=== PATIENT | male | born 1965 | race Caucasian/White ===

== ENCOUNTER 2017-06-29 08:20 | Inpatient (IN) | payer OTHER ==
[~2017-06-29] VITALS: Ht 188 cm; Wt 92.0 kg
[~2017-06-29 08:20] MED LIST: ACET325 PO; ACTOS PO; ALBU90OI6 INH; ALUM-MAG HYDRO360 ML PO; AMIT25 PO; AMIT50 PO; AMOX500 PO; ANTIBIOTIC OINT28 GM TOP; ATOR10 PO; ATOR40TA PO; Acidophilus La100 GM; BISA10S PR; BISM87SU PO; CEFD300 PO; CEPH500 PO; CETI5 PO; CLIN150 PO; CLIN300 PO; CLON.5 PO; CLON1 PO; CLON2 PO; CODACE30 PO; COLL250TO TOP; COUMADIN; CRUTCH4 USE; Cetirizine HCl10 MG PO; Cipro750 MG PO; Cleocin HCl150 MG PO; DOXY100 PO; ENOX100I SQ; FLUO20 PO; GABA300 PO; GABA400 PO; GABA600 PO; GEMF600 PO; GLIM2 PO; GLIM4 PO; HYDACE10B PO; HYDACE5 PO; HYDCHL12.5 PO; HYDCHL25 PO; HYDCOR1TC TOP; HYDMOR2 PO; HYDMOR4 PO; HYDR-86 PO; HYDR1TAB94 PO; HYDRA25 PO; INS70/30PN SC; INSDET100 SC; INSDET100 SQ; INSLI100I SC; INSR10I SC; INSR10I SUBQ; INSU7030P SC; INSUASPI SC; INSUGL100V SC; INSULANI SC; INSULANI SUBQ; INSULANPEN PO; INSULANPEN SC; LANS30EC PO; LAVAZA PO; LEVIMIR SQ; LEVO750 PO; LISI20 PO; LISI5 PO; LOVAZA; LOVAZA PO; LOW DOSE ASPIRI81 MG PO; Levaquin750 MG PO; MECL12.5 PO; MECL25 PO; METF500 PO; METF850 PO; METO10 PO; MINO100 PO; MIRT30 PO; Milk Of Ma400 MG/5 M PO; NEOPOLBACA TOP; Normal Saline Fl2 ML TOP; Novolog Fl100 UNIT/1 SC; OMEP20ER PO; OMEP40CA12 PO; OMEPRAZOLE MAGN20 MG PO; OXYACE5T PO; OXYC10TA19 PO; OXYC5 PO; Omeprazole20 M1 PO; PIOG15 PO; PRAV20 PO; PRAZ1 PO; PREG25 PO; PSEU120ER PO; Percocet 10-321 EACH PO; Prilosec Otc20 MG PO; RANI150 PO; RXCLIN PO; RXHYD5325 PO; RXHYDACE PO; SACC250C PO; SIMV10 PO; SUCR1 PO; TOPI100 PO; TOPI25 PO; TOPI50 PO; UREA TOP; Unasyn 3 gm3 GM IV; VENL37.5ER PO; VERTICALM25 MG PO; VIBRYD PO; VIIBRYD40 MG PO; WARF10 PO; XARELTO20 MG PO; ZOLP10 PO; ZOLP5 PO; ZYRTEC10 M2 PO; Zofran Odt4 MG SL; Zofran4 MG PO; [UNRECOGNIZED DRUG - CODE] TOP; [UNRECOGNIZED DRUG - OTHER] PR; [UNRECOGNIZED DRUG - OTHER] TOP
[2017-06-29 08:42] LABS: PCO2 Arterial 20.7 mmHg (35-45)
[2017-06-29 08:45] LABS: Calcium, Ionized (POC) 1.11 mmol/L (1.10-1.46); Chloride (POC) 93 mmol/L (98-108); Creatinine (POC) 2.6 mg/dL (0.8-1.3); Glucose (ISTAT POC) >700 mg/dL (70-99); Hemoglobin (POC) 16.7 g/dL (13.5-17.5); Potassium (POC) 5.3 mmol/L (3.5-5.5); Sodium (POC) 121 mmol/L (135-148); Total CO2 (POC) 8 mmol/L (21-32); pH Blood Arterial 6.81 (7.35-7.45)
[2017-06-29 08:46] LABS: PO2 Arterial >500 mmHg (80-100)
[2017-06-29 08:53] LABS: BASOPHILS ABSOLUTE AUTO 0.07 K/mm3 (0.00-0.23); BASOPHILS PERCENT AUTO 0 % (0-2); EOSINOPHILS ABSOLUTE AUTO 0.01 K/mm3 (0.00-0.68); EOSINOPHILS PERCENT AUTO 0 % (0-6); Hemoglobin 15.9 g/dL (13.5-17.5); IMMATURE GRAN ABSOLUTE AUTO 0.22 K/mm3 (0.00-0.10); IMMATURE GRAN PERCENT AUTO 1 % (0-1); LYMPHOCYTES ABSOLUTE AUTO 1.52 K/mm3 (0.84-5.20); LYMPHOCYTES PERCENT AUTO 7 % (21-46); MONOCYTES ABSOLUTE AUTO 1.58 K/mm3 (0.16-1.47); MONOCYTES PERCENT AUTO 7 % (4-13); Mean Corpuscular HGB 30.7 pg (26.0-34.0); Mean Corpuscular HGB Conc 28.3 g/dL (31.5-36.5); Mean Corpuscular Volume 108 fL (80-100); Mean Platelet Volume 11.6 fL (9.1-12.4); NEUTROPHILS ABSOLUTE AUTO 18.58 K/mm3 (1.96-9.15); NEUTROPHILS PERCENT AUTO 85 % (41-73); Platelet Count 279 K/mm3 (150-400); RDW Coefficient Variation 12.2 % (11.7-14.2); RDW Standard Deviation 49.4 fL (35.1-46.3); Red Blood Cell Count 5.18 M/mm3 (4.30-5.90); White Blood Cell Count 21.98 K/mm3 (4.00-11.30)
[2017-06-29 08:55] LABS: Hematocrit 56.1 % (37.0-53.0)
[2017-06-29 09:03] LABS: Source, Urine Catheter
[2017-06-29 09:09] LABS: Bilirubin, Urine Neg (Neg); Blood, Urine 2+ (Neg); Glucose Qualitative, Urine 4+ (Neg); Ketones, Urine 4+ (Neg); Leukocyte Esterase, Urine Neg (Neg); Nitrite, Urine Neg (Neg); Protein, Urine 2+ (Neg); Specific Gravity, Urine 1.015 (1.003-1.022); Urobilinogen, Urine NORM (Normal)
[2017-06-29 09:12] LABS: Ethanol (Alcohol), Blood, Med <3 mg/dL; Troponin I <0.015 ng/mL (0.000-0.040)
[2017-06-29 09:32] LABS: Alanine Aminotransfer (ALT/SGP 29 U/L (12-78); Albumin/Globulin Ratio 0.7 (0.8-1.8); Alk Phos 171 U/L (50-136); Anion Gap 39 mmol/L (6-16); Aspartate Aminotrans (AST/SGOT 20 U/L (12-37); Bilirubin, Total 0.6 mg/dL (0.1-1.0); Blood Urea Nitrogen 73 mg/dL (8-24); CO2, Blood 5 mmol/L (21-32); Calcium, Blood 8.9 mg/dL (8.5-10.1); Chloride, Blood 78 mmol/L (98-108); Creatinine, Blood 2.43 mg/dL (0.60-1.20); Globulin, Blood 4.4 g/dL (2.2-4.0); Glomerular Filtration Rate 25 (60-); Glucose, Blood 1518 mg/dL (70-99); Potassium, Blood 5.2 mmol/L (3.5-5.5); Sodium, Blood 122 mmol/L (136-145); Total Protein, Blood 7.4 g/dL (6.4-8.2)
[2017-06-29 09:32] LABS: U Amphetamine Screen Not Detected; U Barbituate Screen Not Detected; U Benzodiazapine Screen Not Detected; U Buprenorphine Screen Not Detected; U Cannabinoids Screen Not Detected; U Cocaine Screen Not Detected; U Methadone Screen Not Detected; U Methamphetamine Screen Not Detected; U Opiates Screen Not Detected; U Oxycodone Screen Not Detected; U Phencyclidine Screen Not Detected; U Propoxyphene Screen Not Detected
[2017-06-29 09:53] LABS: Appearance, Urine Clear (Clear); Color, Urine Yellow (P-Yellow)
[2017-06-29 09:56] LABS: Granular Casts Rare /lpf (0); Hyaline Casts Rare /lpf (0-2)
[2017-06-29 09:57] LABS: Bacteria Rare /hpf; Red Blood Cells, Urine 0-2 /hpf (0-2); Squamous Epithelial Cells Few /hpf (Few); White Blood Cells, Urine Not Seen /hpf (0-5)
[2017-06-29 12:12] LABS: Potassium, Blood 4.9 mmol/L (3.5-5.5)
[2017-06-29 12:14] LABS: Glucose, Blood 1262 mg/dL (70-99)
[2017-06-29 14:16] LABS: PCO2 Arterial 32.6 mmHg (35-45); PO2 Arterial 211 mmHg (80-100); pH Blood Arterial 7.02 (7.35-7.45)
[2017-06-29 14:16] LABS: Glucose, Blood 1079 mg/dL (70-99)
[2017-06-29 14:17] LABS: Potassium, Blood 4.3 mmol/L (3.5-5.5)
[2017-06-29 16:16] LABS: Potassium, Blood 3.9 mmol/L (3.5-5.5)
[2017-06-29 16:36] LABS: Glucose, Blood 974 mg/dL (70-99)
[2017-06-29 18:02] LABS: Anion Gap 28 mmol/L (6-16); CO2, Blood 11 mmol/L (21-32); Chloride, Blood 102 mmol/L (98-108); Glucose, Blood 902 mg/dL (70-99); Potassium, Blood 3.9 mmol/L (3.5-5.5); Sodium, Blood 141 mmol/L (136-145)
[2017-06-29 20:03] LABS: Anion Gap 23 mmol/L (6-16); CO2, Blood 15 mmol/L (21-32); Chloride, Blood 105 mmol/L (98-108); Glucose, Blood 690 mg/dL (70-99); Potassium, Blood 3.1 mmol/L (3.5-5.5); Sodium, Blood 143 mmol/L (136-145)
[2017-06-29 21:47] LABS: Anion Gap 19 mmol/L (6-16); CO2, Blood 18 mmol/L (21-32); Chloride, Blood 107 mmol/L (98-108); Glucose, Blood 561 mg/dL (70-99); Potassium, Blood 3.2 mmol/L (3.5-5.5); Sodium, Blood 144 mmol/L (136-145)
[2017-06-30 00:14] LABS: Anion Gap 17 mmol/L (6-16); CO2, Blood 21 mmol/L (21-32); Chloride, Blood 110 mmol/L (98-108); Glucose, Blood 458 mg/dL (70-99); Potassium, Blood 3.1 mmol/L (3.5-5.5); Sodium, Blood 148 mmol/L (136-145)
[2017-06-30 02:16] LABS: Anion Gap 14 mmol/L (6-16); Blood Urea Nitrogen 62 mg/dL (8-24); Bun/Creatinine Ratio 25.4 (12.0-20.0); CO2, Blood 21 mmol/L (21-32); Chloride, Blood 112 mmol/L (98-108); Creatinine, Blood 2.44 mg/dL (0.60-1.20); Glomerular Filtration Rate 30 (60-); Glucose, Blood 394 mg/dL (70-99); Phosphorus, Blood 0.5 mg/dL (2.5-4.9); Potassium, Blood 3.9 mmol/L (3.5-5.5); Sodium, Blood 147 mmol/L (136-145)
[2017-06-30 04:57] LABS: PCO2 Arterial 37.4 mmHg (35-45); PO2 Arterial 85.2 mmHg (80-100); pH Blood Arterial 7.46 (7.35-7.45)
[2017-06-30 08:49] LABS: BASOPHILS ABSOLUTE AUTO 0.01 K/mm3 (0.00-0.23); BASOPHILS PERCENT AUTO 0 % (0-2); EOSINOPHILS PERCENT AUTO 0 % (0-6); Hematocrit 28.7 % (37.0-53.0); Hemoglobin 10.7 g/dL (13.5-17.5); IMMATURE GRAN ABSOLUTE AUTO 0.04 K/mm3 (0.00-0.10); IMMATURE GRAN PERCENT AUTO 0 % (0-1); LYMPHOCYTES ABSOLUTE AUTO 0.84 K/mm3 (0.84-5.20); LYMPHOCYTES PERCENT AUTO 9 % (21-46); MONOCYTES ABSOLUTE AUTO 1.16 K/mm3 (0.16-1.47); MONOCYTES PERCENT AUTO 12 % (4-13); Mean Corpuscular HGB 30.5 pg (26.0-34.0); Mean Corpuscular HGB Conc 37.3 g/dL (31.5-36.5); Mean Platelet Volume 10.3 fL (9.1-12.4); NEUTROPHILS ABSOLUTE AUTO 7.89 K/mm3 (1.96-9.15); NEUTROPHILS PERCENT AUTO 79 % (41-73); Platelet Count 113 K/mm3 (150-400); RDW Coefficient Variation 11.9 % (11.7-14.2); RDW Standard Deviation 35.5 fL (35.1-46.3); Red Blood Cell Count 3.51 M/mm3 (4.30-5.90); White Blood Cell Count 9.94 K/mm3 (4.00-11.30)
[2017-06-30 08:50] LABS: Mean Corpuscular Volume 82 fL (80-100)
[2017-06-30 09:26] LABS: Magnesium, Blood 2.2 mg/dL (1.6-2.4)
[2017-06-30 09:27] LABS: Anion Gap 9 mmol/L (6-16); Blood Urea Nitrogen 61 mg/dL (8-24); Bun/Creatinine Ratio 24.1 (12.0-20.0); CO2, Blood 28 mmol/L (21-32); Calcium, Blood 7.2 mg/dL (8.5-10.1); Chloride, Blood 114 mmol/L (98-108); Creatinine, Blood 2.53 mg/dL (0.60-1.20); Glomerular Filtration Rate 28 (60-); Glucose, Blood 198 mg/dL (70-99); Sodium, Blood 151 mmol/L (136-145)
[2017-06-30 19:13] LABS: Albumin, Blood 1.8 g/dL (3.4-5.0); Anion Gap 9 mmol/L (6-16); Blood Urea Nitrogen 58 mg/dL (8-24); CO2, Blood 28 mmol/L (21-32); Calcium, Blood 7.1 mg/dL (8.5-10.1); Chloride, Blood 115 mmol/L (98-108); Creatinine, Blood 2.64 mg/dL (0.60-1.20); Glomerular Filtration Rate 27 (60-); Glucose, Blood 306 mg/dL (70-99); Phosphorus, Blood 3.5 mg/dL (2.5-4.9); Potassium, Blood 3.4 mmol/L (3.5-5.5); Sodium, Blood 152 mmol/L (136-145)
[2017-06-30 19:40] LABS: Methyl Alcohol None Detected (NDET)
[2017-07-01 04:25] LABS: Hematocrit 28.5 % (37.0-53.0); Hemoglobin 10.3 g/dL (13.5-17.5); Mean Corpuscular HGB 30.8 pg (26.0-34.0); Mean Corpuscular HGB Conc 36.1 g/dL (31.5-36.5); Platelet Count 71 K/mm3 (150-400); RDW Coefficient Variation 12.6 % (11.7-14.2); Red Blood Cell Count 3.34 M/mm3 (4.30-5.90); White Blood Cell Count 8.72 K/mm3 (4.00-11.30)
[2017-07-01 04:27] LABS: Mean Corpuscular Volume 85 fL (80-100)
[2017-07-01 04:46] LABS: Albumin, Blood 1.8 g/dL (3.4-5.0); Anion Gap 8 mmol/L (6-16); Blood Urea Nitrogen 56 mg/dL (8-24); Bun/Creatinine Ratio 22.2 (12.0-20.0); CO2, Blood 26 mmol/L (21-32); Calcium, Blood 7.1 mg/dL (8.5-10.1); Chloride, Blood 116 mmol/L (98-108); Creatinine, Blood 2.52 mg/dL (0.60-1.20); Glomerular Filtration Rate 28 (60-); Glucose, Blood 288 mg/dL (70-99); Magnesium, Blood 2.2 mg/dL (1.6-2.4); Phosphorus, Blood 2.4 mg/dL (2.5-4.9); Potassium, Blood 3.3 mmol/L (3.5-5.5); Sodium, Blood 150 mmol/L (136-145)
[2017-07-01 04:56] LABS: BAND PERCENT MAN 11 % (0-8); BASOPHILS PERCENT MAN 0 % (0-2); EOSINOPHILS PERCENT MAN 0 % (0-6); LYMPHOCYTES PERCENT MAN 15 % (21-46); METAMYELOCYTE ABSOLUTE MAN 0.17 K/mm3 (0.00-0.00); METAMYELOCYTE PERCENT MAN 2 % (0-0); MONOCYTES ABSOLUTE MAN 0.34 K/mm3 (0.16-1.47); MONOCYTES PERCENT MAN 4 % (4-13); NEUTROPHILS ABSOLUTE MAN 6.88 K/mm3 (1.96-9.15); SEG NEUTROPHILS PERCENT MAN 68 % (41-73); TOTAL CELLS COUNTED 100
[2017-07-01 09:50] LABS: Test Name ACET
[2017-07-01] MEDS ORDERED: ACET325 PO (10:09)
[2017-07-01] MEDS ORDERED: LEVEMIR FL100 UNIT/1 SC (10:11)
[2017-07-01] MEDS ORDERED: Novolog Fl100 UNIT/1 INJ (10:12)
[2017-07-01] MEDS ORDERED: LISI5 PO (10:13)
[2017-07-01 14:32] LABS: Albumin, Blood 1.7 g/dL (3.4-5.0); Anion Gap 10 mmol/L (6-16); Blood Urea Nitrogen 55 mg/dL (8-24); Bun/Creatinine Ratio 22.2 (12.0-20.0); CO2, Blood 25 mmol/L (21-32); Calcium, Blood 7.4 mg/dL (8.5-10.1); Chloride, Blood 116 mmol/L (98-108); Creatinine, Blood 2.48 mg/dL (0.60-1.20); Glomerular Filtration Rate 29 (60-); Glucose, Blood 359 mg/dL (70-99); Magnesium, Blood 2.3 mg/dL (1.6-2.4); Phosphorus, Blood 3.5 mg/dL (2.5-4.9); Sodium, Blood 151 mmol/L (136-145)
[2017-07-02 04:35] LABS: Hematocrit 28.8 % (37.0-53.0); Hemoglobin 10.1 g/dL (13.5-17.5); Mean Corpuscular HGB 30.3 pg (26.0-34.0); Mean Corpuscular HGB Conc 35.1 g/dL (31.5-36.5); Mean Corpuscular Volume 87 fL (80-100); Mean Platelet Volume 11.1 fL (9.1-12.4); Platelet Count 76 K/mm3 (150-400); RDW Coefficient Variation 13.2 % (11.7-14.2); RDW Standard Deviation 41.6 fL (35.1-46.3); Red Blood Cell Count 3.33 M/mm3 (4.30-5.90); White Blood Cell Count 10.84 K/mm3 (4.00-11.30)
[2017-07-02 04:46] LABS: Albumin, Blood 1.7 g/dL (3.4-5.0); Anion Gap 7 mmol/L (6-16); Blood Urea Nitrogen 48 mg/dL (8-24); Bun/Creatinine Ratio 21.2 (12.0-20.0); CO2, Blood 28 mmol/L (21-32); Calcium, Blood 7.5 mg/dL (8.5-10.1); Chloride, Blood 116 mmol/L (98-108); Creatinine, Blood 2.26 mg/dL (0.60-1.20); Glomerular Filtration Rate 32 (60-); Glucose, Blood 83 mg/dL (70-99); Magnesium, Blood 2.2 mg/dL (1.6-2.4); Phosphorus, Blood 2.5 mg/dL (2.5-4.9); Potassium, Blood 3.5 mmol/L (3.5-5.5); Sodium, Blood 151 mmol/L (136-145)
[2017-07-02 05:52] LABS: BAND PERCENT MAN 14 % (0-8); BASOPHILS PERCENT MAN 0 % (0-2); EOSINOPHILS PERCENT MAN 0 % (0-6); LYMPHOCYTES ABSOLUTE MAN 1.95 K/mm3 (0.84-5.20); LYMPHOCYTES PERCENT MAN 18 % (21-46); METAMYELOCYTE PERCENT MAN 1 % (0-0); MONOCYTES ABSOLUTE MAN 0.32 K/mm3 (0.16-1.47); MONOCYTES PERCENT MAN 3 % (4-13); NEUTROPHILS ABSOLUTE MAN 8.45 K/mm3 (1.96-9.15); SEG NEUTROPHILS PERCENT MAN 64 % (41-73); TOTAL CELLS COUNTED 100
[2017-07-03 04:49] LABS: BASOPHILS ABSOLUTE AUTO 0.01 K/mm3 (0.00-0.23); BASOPHILS PERCENT AUTO 0 % (0-2); EOSINOPHILS ABSOLUTE AUTO 0.06 K/mm3 (0.00-0.68); EOSINOPHILS PERCENT AUTO 1 % (0-6); Hematocrit 27.9 % (37.0-53.0); Hemoglobin 9.4 g/dL (13.5-17.5); IMMATURE GRAN ABSOLUTE AUTO 0.04 K/mm3 (0.00-0.10); IMMATURE GRAN PERCENT AUTO 1 % (0-1); LYMPHOCYTES PERCENT AUTO 12 % (21-46); MONOCYTES ABSOLUTE AUTO 0.54 K/mm3 (0.16-1.47); MONOCYTES PERCENT AUTO 6 % (4-13); Mean Corpuscular HGB 30.3 pg (26.0-34.0); Mean Corpuscular HGB Conc 33.7 g/dL (31.5-36.5); Mean Platelet Volume 10.9 fL (9.1-12.4); NEUTROPHILS ABSOLUTE AUTO 6.91 K/mm3 (1.96-9.15); NEUTROPHILS PERCENT AUTO 81 % (41-73); Platelet Count 74 K/mm3 (150-400); RDW Coefficient Variation 13.2 % (11.7-14.2); RDW Standard Deviation 43.4 fL (35.1-46.3); White Blood Cell Count 8.56 K/mm3 (4.00-11.30)
[2017-07-03 04:57] LABS: Mean Corpuscular Volume 90 fL (80-100)
[2017-07-03 05:05] LABS: Albumin, Blood 1.6 g/dL (3.4-5.0); Anion Gap 6 mmol/L (6-16); Blood Urea Nitrogen 45 mg/dL (8-24); Bun/Creatinine Ratio 21.7 (12.0-20.0); CO2, Blood 28 mmol/L (21-32); Calcium, Blood 8.2 mg/dL (8.5-10.1); Chloride, Blood 114 mmol/L (98-108); Creatinine, Blood 2.07 mg/dL (0.60-1.20); Glomerular Filtration Rate 36 (60-); Glucose, Blood 155 mg/dL (70-99); Magnesium, Blood 2.4 mg/dL (1.6-2.4); Phosphorus, Blood 2.5 mg/dL (2.5-4.9); Potassium, Blood 3.6 mmol/L (3.5-5.5); Sodium, Blood 148 mmol/L (136-145)
[2017-07-04 05:04] LABS: Hematocrit 30.7 % (37.0-53.0); Hemoglobin 10.2 g/dL (13.5-17.5); Mean Corpuscular HGB 30.1 pg (26.0-34.0); Mean Corpuscular HGB Conc 33.2 g/dL (31.5-36.5); Mean Corpuscular Volume 91 fL (80-100); Mean Platelet Volume 10.8 fL (9.1-12.4); Platelet Count 92 K/mm3 (150-400); RDW Coefficient Variation 12.6 % (11.7-14.2); RDW Standard Deviation 41.9 fL (35.1-46.3); Red Blood Cell Count 3.39 M/mm3 (4.30-5.90); White Blood Cell Count 6.21 K/mm3 (4.00-11.30)
[2017-07-04 05:19] LABS: Bun/Creatinine Ratio 22.9 (12.0-20.0); Calcium, Blood 8.8 mg/dL (8.5-10.1); Creatinine, Blood 1.79 mg/dL (0.60-1.20); Potassium, Blood 3.9 mmol/L (3.5-5.5)
[2017-07-04 05:37] LABS: Percent Saturation 46.7 % (20.0-50.0)
[2017-07-04] MEDS ORDERED: Augmentin 875-1 EACH PO (10:21)
[2017-07-04] MEDS ORDERED: ROXICODONE5 MG PO (10:21)
[2017-07-04] MEDS ORDERED: PANT40 PO (10:22)
[2017-10-13] MEDS ORDERED: ACET325 PO (13:04)
[2017-10-13] MEDS ORDERED: GABA100 PO (13:05)
[2017-10-13] MEDS ORDERED: HYDCHL12.5 PO (13:06)
[2017-10-13] MEDS ORDERED: INSU100I6 SC (13:12)
[2017-10-13] MEDS ORDERED: LEVEMIR FL100 UNIT/1 SC (13:13)
[2017-10-13] MEDS ORDERED: LISI5 PO (13:13)
[2017-10-13] MEDS ORDERED: OXYC5 PO (13:16)
[2017-10-13] MEDS ORDERED: METF500C PO (13:16)
[2017-10-13] MEDS ORDERED: PRAV20 PO (13:17)
[2017-10-13] MEDS ORDERED: PANT40 PO (13:17)
[2017-10-13] MEDS ORDERED: TOPI25 PO (13:18)
[2017-10-13] MEDS ORDERED: ALBU90OI INH (13:18)
[2017-10-13] MEDS ORDERED: Culturelle1 CAP PO (13:20)
[2017-10-13] MEDS ORDERED: AZIT500 PO (13:22)
[2017-10-13] MEDS ORDERED: LEVFLO500 PO (13:23)
[2018-04-07] MEDS ORDERED: Novolog Fl100 UNIT/1 SC (14:12)
[2018-04-07] MEDS ORDERED: Lantus100 UNIT/1 SC (14:12)
[2018-04-18] MEDS ORDERED: ONDA4 PO (16:45)
[2018-04-18] MEDS ORDERED: PROM25 PO (16:46)
[2018-04-18] MEDS ORDERED: PANT40 PO (16:49)
[2018-04-18] MEDS ORDERED: Micro-K10 MEQ PO (16:54)
[2018-04-18] MEDS ORDERED: FURO40 PO (16:55)
[2018-04-18] MEDS ORDERED: INSULANPEN SC ×2 (16:58→16:59)
[2018-04-18] MEDS ORDERED: Novolog Fl100 UNIT/1 SC ×2 (17:01→17:03)
[2018-04-18] MEDS ORDERED: BETA.05TCA TOP (17:06)
[2018-04-18] MEDS ORDERED: TRAM50 PO (17:07)
== END 2017-07-04 10:52 | disposition home or self-care (01) | DRG 871 ==
LOC: ER 08:20 → EDBD 09:17 → PCU 09:17 → ICUW 09:17 → ICUE 09:17 → PCU 09:17 → ICUE 10:03 → PCU 07-01 17:28
PROVIDERS: Emergency Medicine; Family Medicine; Internal Medicine; Internal Medicine Critical Care Medicine; Internal Medicine Pulmonary Disease
PROC: 0BH17EZ Insertion of Endotracheal Airway into Trachea, Via Natural or Artificial Opening (ICD-10-PCS; principal; 2017-06-29)
PROC: 5A1945Z Respiratory Ventilation, 24-96 Consecutive Hours (ICD-10-PCS; 2017-06-29)
DX: A41.9 Sepsis, unspecified organism (principal); J96.00 Acute respiratory failure, unspecified whether with hypoxia or hypercapnia; R57.9 Shock, unspecified; E11.01 Type 2 diabetes mellitus with hyperosmolarity with coma; G93.40 Encephalopathy, unspecified; E11.10 Type 2 diabetes mellitus with ketoacidosis without coma; N17.9 Acute kidney failure, unspecified; E87.0 Hyperosmolality and hypernatremia; R65.20 Severe sepsis without septic shock; R40.2432 Glasgow coma scale score 3-8, at arrival to emergency department; E11.22 Type 2 diabetes mellitus with diabetic chronic kidney disease; N18.9 Chronic kidney disease, unspecified; K21.9 Gastro-esophageal reflux disease without esophagitis; R68.0 Hypothermia, not associated with low environmental temperature; E83.39 Other disorders of phosphorus metabolism; E87.6 Hypokalemia; Z79.4 Long term (current) use of insulin
CPT/HCPCS: 31500; 31720; 36415; 36600; 51702; 70450; 71045; 71046; 80047; 80048; 80051; 80053; 80069; 81001; 82010; 82693; 82728; 82803; 82947; 83540; 83550; 83605; 83735; 83930; 84100; 84484; 84600; 85014; 85025; 85027; 87040; 87070; 87077; 87186; 87205; 87493; 93005; 93010; 94002; 94003; 94640; 94760; 96374; 96375; 99291; 99292; C1751; C9113; G0480; J0330; J1650; J1815; J1956; J2060; J2543; J3010; J3480; J7030; J7040; J7042; J7060; J7070

== ENCOUNTER 2017-10-11 10:31 | Inpatient (IN) | END 2017-10-13 14:15 | disposition home or self-care (01) | DRG 871 ==

== ENCOUNTER 2017-10-19 11:26 | Emergency (ER) | payer OTHER ==
[~2017-10-19] VITALS: Ht 190.5 cm; Wt 90.3 kg
[~2017-10-19 11:26] MED LIST changes: +ALBU90OI INH; +AZIT500 PO; +Augmentin 875-1 EACH PO; +Culturelle1 CAP PO; +GABA100 PO; +INSU100I6 SC; +LEVEMIR FL100 UNIT/1 SC; +LEVFLO500 PO; +METF500C PO; +Novolog Fl100 UNIT/1 INJ; +PANT40 PO; +ROXICODONE5 MG PO
[2017-10-19 12:16] LABS: BASOPHILS ABSOLUTE AUTO 0.03 K/mm3 (0.00-0.23); BASOPHILS PERCENT AUTO 0 % (0-2); EOSINOPHILS ABSOLUTE AUTO 0.06 K/mm3 (0.00-0.68); EOSINOPHILS PERCENT AUTO 1 % (0-6); IMMATURE GRAN ABSOLUTE AUTO 0.02 K/mm3 (0.00-0.10); IMMATURE GRAN PERCENT AUTO 0 % (0-1); LYMPHOCYTES ABSOLUTE AUTO 1.22 K/mm3 (0.84-5.20); LYMPHOCYTES PERCENT AUTO 15 % (21-46); MONOCYTES ABSOLUTE AUTO 0.99 K/mm3 (0.16-1.47); MONOCYTES PERCENT AUTO 12 % (4-13); Mean Corpuscular HGB 31.1 pg (26.0-34.0); Mean Corpuscular HGB Conc 35.3 g/dL (31.5-36.5); Mean Platelet Volume 10.1 fL (9.1-12.4); NEUTROPHILS ABSOLUTE AUTO 5.76 K/mm3 (1.96-9.15); NEUTROPHILS PERCENT AUTO 71 % (41-73); Platelet Count 218 K/mm3 (150-400); RDW Standard Deviation 38.4 fL (35.1-46.3); Red Blood Cell Count 3.86 M/mm3 (4.30-5.90); White Blood Cell Count 8.08 K/mm3 (4.00-11.30)
[2017-10-19 12:38] LABS: Alanine Aminotransfer (ALT/SGP 21 U/L (12-78); Albumin, Blood 2.6 g/dL (3.4-5.0); Albumin/Globulin Ratio 0.6 (0.8-1.8); Alk Phos 133 U/L (50-136); Anion Gap 9 mmol/L (6-16); Aspartate Aminotrans (AST/SGOT 11 U/L (12-37); Bilirubin, Total 0.3 mg/dL (0.1-1.0); Blood Urea Nitrogen 19 mg/dL (8-24); Bun/Creatinine Ratio 23.3 (12.0-20.0); CO2, Blood 27 mmol/L (21-32); Calcium, Blood 8.8 mg/dL (8.5-10.1); Chloride, Blood 94 mmol/L (98-108); Creatinine, Blood 0.82 mg/dL (0.60-1.20); Glomerular Filtration Rate >60 (60-); Glucose, Blood 569 mg/dL (70-99); Potassium, Blood 4.3 mmol/L (3.5-5.5); Sodium, Blood 130 mmol/L (136-145); Total Protein, Blood 6.6 g/dL (6.4-8.2); Troponin I <0.015 ng/mL (0.000-0.040)
[2017-10-19 12:42] LABS: Mean Corpuscular Volume 88 fL (80-100)
[2017-10-19 12:44] LABS: Beta-hydroxybutyrate 3.4 mg/dL (0.2-2.8)
== END 2017-10-19 15:40 | disposition home or self-care (01) ==
LOC: ER 11:26
PROVIDERS: Emergency Medicine
DX: E11.65 Type 2 diabetes mellitus with hyperglycemia (principal); F17.200 Nicotine dependence, unspecified, uncomplicated; Z88.2 Allergy status to sulfonamides; Z88.5 Allergy status to narcotic agent; Z91.048 Other nonmedicinal substance allergy status; Z79.4 Long term (current) use of insulin; Z79.899 Other long term (current) drug therapy; Z79.84 Long term (current) use of oral hypoglycemic drugs; Z79.891 Long term (current) use of opiate analgesic
CPT/HCPCS: 36415; 71046; 80053; 82010; 82800; 82947; 84484; 85025; 93005; 93010; 96360; 99283; J1815; J7030

== ENCOUNTER 2017-12-21 23:55 | Inpatient (IN) | payer OTHER ==
[~2017-12-21] VITALS: Ht 190.5 cm; Wt 96.6 kg
[2017-12-22] MEDS ORDERED: AMIT50 PO (02:07)
[2017-12-22] MEDS ORDERED: BETA.05TCA TOP (02:08)
[2017-12-22] MEDS ORDERED: ZYRTEC10 M1 PO (02:09)
[2017-12-22] MEDS ORDERED: FURO40 PO (02:12)
[2017-12-22] MEDS ORDERED: GABA600 PO (02:13)
[2017-12-22] MEDS ORDERED: INSULANPEN SC (02:15)
[2017-12-22] MEDS ORDERED: Mirtazapine45 M1 PO (02:16)
[2017-12-22] MEDS ORDERED: Omeprazole20 M1 PO (02:18)
[2017-12-22] MEDS ORDERED: ONDA4ODT MM (02:20)
[2017-12-22 03:09] LABS: BASOPHILS ABSOLUTE AUTO 0.08 K/mm3 (0.00-0.23); BASOPHILS PERCENT AUTO 1 % (0-2); EOSINOPHILS ABSOLUTE AUTO 0.21 K/mm3 (0.00-0.68); EOSINOPHILS PERCENT AUTO 3 % (0-6); Hematocrit 35.8 % (37.0-53.0); IMMATURE GRAN ABSOLUTE AUTO 0.04 K/mm3 (0.00-0.10); IMMATURE GRAN PERCENT AUTO 1 % (0-1); LYMPHOCYTES PERCENT AUTO 27 % (21-46); MONOCYTES ABSOLUTE AUTO 0.71 K/mm3 (0.16-1.47); MONOCYTES PERCENT AUTO 9 % (4-13); Mean Corpuscular HGB 30.2 pg (26.0-34.0); Mean Corpuscular HGB Conc 33.5 g/dL (31.5-36.5); Mean Corpuscular Volume 90 fL (80-100); NEUTROPHILS ABSOLUTE AUTO 4.49 K/mm3 (1.96-9.15); NEUTROPHILS PERCENT AUTO 60 % (41-73); RDW Coefficient Variation 12.4 % (11.7-14.2); Red Blood Cell Count 3.98 M/mm3 (4.30-5.90); White Blood Cell Count 7.53 K/mm3 (4.00-11.30)
[2017-12-22 03:11] LABS: Mean Platelet Volume 10.7 fL (9.1-12.4); Platelet Count 154 K/mm3 (150-400)
[2017-12-22 03:19] LABS: Anion Gap 9 mmol/L (6-16); Blood Urea Nitrogen 32 mg/dL (8-24); Bun/Creatinine Ratio 36.6 (12.0-20.0); CO2, Blood 24 mmol/L (21-32); Calcium, Blood 8.4 mg/dL (8.5-10.1); Chloride, Blood 100 mmol/L (98-108); Creatinine, Blood 0.88 mg/dL (0.60-1.20); Glomerular Filtration Rate >60 (60-); Glucose, Blood 381 mg/dL (70-99); Potassium, Blood 4.1 mmol/L (3.5-5.5); Sodium, Blood 133 mmol/L (136-145)
[2017-12-22] MEDS ORDERED: XARELTO20 MG PO (03:29)
[2017-12-22] MEDS ORDERED: POTCHL10ER PO (03:29)
[2017-12-22] MEDS ORDERED: VIIBRYD40 MG PO (03:30)
[2017-12-23 04:35] LABS: BASOPHILS ABSOLUTE AUTO 0.05 K/mm3 (0.00-0.23); BASOPHILS PERCENT AUTO 1 % (0-2); EOSINOPHILS ABSOLUTE AUTO 0.21 K/mm3 (0.00-0.68); EOSINOPHILS PERCENT AUTO 4 % (0-6); Hematocrit 35.3 % (37.0-53.0); Hemoglobin 11.6 g/dL (13.5-17.5); IMMATURE GRAN ABSOLUTE AUTO 0.02 K/mm3 (0.00-0.10); IMMATURE GRAN PERCENT AUTO 0 % (0-1); LYMPHOCYTES ABSOLUTE AUTO 1.42 K/mm3 (0.84-5.20); LYMPHOCYTES PERCENT AUTO 27 % (21-46); MONOCYTES ABSOLUTE AUTO 0.44 K/mm3 (0.16-1.47); MONOCYTES PERCENT AUTO 8 % (4-13); Mean Corpuscular HGB 29.7 pg (26.0-34.0); Mean Corpuscular HGB Conc 32.9 g/dL (31.5-36.5); Mean Corpuscular Volume 91 fL (80-100); Mean Platelet Volume 10.2 fL (9.1-12.4); NEUTROPHILS ABSOLUTE AUTO 3.13 K/mm3 (1.96-9.15); NEUTROPHILS PERCENT AUTO 60 % (41-73); Platelet Count 206 K/mm3 (150-400); RDW Coefficient Variation 12.7 % (11.7-14.2); White Blood Cell Count 5.27 K/mm3 (4.00-11.30)
[2017-12-23 04:59] LABS: Alanine Aminotransfer (ALT/SGP 18 U/L (12-78); Albumin, Blood 2.3 g/dL (3.4-5.0); Albumin/Globulin Ratio 0.5 (0.8-1.8); Alk Phos 106 U/L (50-136); Anion Gap 7 mmol/L (6-16); Aspartate Aminotrans (AST/SGOT 22 U/L (12-37); Bilirubin, Total 0.4 mg/dL (0.1-1.0); Blood Urea Nitrogen 27 mg/dL (8-24); Bun/Creatinine Ratio 31.8 (12.0-20.0); CO2, Blood 25 mmol/L (21-32); Calcium, Blood 7.9 mg/dL (8.5-10.1); Chloride, Blood 107 mmol/L (98-108); Creatinine, Blood 0.85 mg/dL (0.60-1.20); Globulin, Blood 4.2 g/dL (2.2-4.0); Glomerular Filtration Rate >60 (60-); Glucose, Blood 237 mg/dL (70-99); Potassium, Blood 4.5 mmol/L (3.5-5.5); Sodium, Blood 139 mmol/L (136-145); Total Protein, Blood 6.5 g/dL (6.4-8.2)
[2017-12-23 16:23] LABS: Vancomycin, Trough 14.7 ug/mL (5.0-10.0)
[2017-12-24 05:37] LABS: BASOPHILS ABSOLUTE AUTO 0.04 K/mm3 (0.00-0.23); BASOPHILS PERCENT AUTO 1 % (0-2); EOSINOPHILS ABSOLUTE AUTO 0.21 K/mm3 (0.00-0.68); EOSINOPHILS PERCENT AUTO 3 % (0-6); Hematocrit 35.8 % (37.0-53.0); Hemoglobin 11.5 g/dL (13.5-17.5); IMMATURE GRAN ABSOLUTE AUTO 0.03 K/mm3 (0.00-0.10); IMMATURE GRAN PERCENT AUTO 1 % (0-1); LYMPHOCYTES ABSOLUTE AUTO 1.53 K/mm3 (0.84-5.20); LYMPHOCYTES PERCENT AUTO 25 % (21-46); MONOCYTES ABSOLUTE AUTO 0.55 K/mm3 (0.16-1.47); MONOCYTES PERCENT AUTO 9 % (4-13); Mean Corpuscular HGB 29.2 pg (26.0-34.0); Mean Corpuscular HGB Conc 32.1 g/dL (31.5-36.5); Mean Corpuscular Volume 91 fL (80-100); Mean Platelet Volume 9.9 fL (9.1-12.4); NEUTROPHILS ABSOLUTE AUTO 3.74 K/mm3 (1.96-9.15); NEUTROPHILS PERCENT AUTO 61 % (41-73); Platelet Count 228 K/mm3 (150-400); RDW Coefficient Variation 12.6 % (11.7-14.2); RDW Standard Deviation 41.5 fL (35.1-46.3); Red Blood Cell Count 3.94 M/mm3 (4.30-5.90)
[2017-12-24 06:00] LABS: Albumin, Blood 2.3 g/dL (3.4-5.0); Anion Gap 9 mmol/L (6-16); Blood Urea Nitrogen 26 mg/dL (8-24); Bun/Creatinine Ratio 24.5 (12.0-20.0); CO2, Blood 25 mmol/L (21-32); Calcium, Blood 8.5 mg/dL (8.5-10.1); Chloride, Blood 109 mmol/L (98-108); Creatinine, Blood 1.06 mg/dL (0.60-1.20); Glomerular Filtration Rate >60 (60-); Glucose, Blood 87 mg/dL (70-99); Potassium, Blood 3.8 mmol/L (3.5-5.5); Sodium, Blood 143 mmol/L (136-145)
[2017-12-25] MEDS ORDERED: SACC250C PO (14:34)
[2017-12-25] MEDS ORDERED: DOXY100 PO (14:36)
[2017-12-25] MEDS ORDERED: TRAM50 PO (14:39)
== END 2017-12-25 15:24 | disposition home or self-care (01) | DRG 623 ==
LOC: ER 23:55 → MEDS 12-22 03:48 → ENPENDDIS 12-25 14:00 → MEDS 12-25 15:24
PROVIDERS: Emergency Medicine; Family Medicine; Internal Medicine; Podiatrist
PROC: 0JBQ0ZZ Excision of Right Foot Subcutaneous Tissue and Fascia, Open Approach (ICD-10-PCS; 2017-12-23)
PROC: 0JBR0ZZ Excision of Left Foot Subcutaneous Tissue and Fascia, Open Approach (ICD-10-PCS; principal; 2017-12-23 11:30)
DX: E10.621 Type 1 diabetes mellitus with foot ulcer (principal); L03.116 Cellulitis of left lower limb; L03.115 Cellulitis of right lower limb; E87.1 Hypo-osmolality and hyponatremia; L97.522 Non-pressure chronic ulcer of other part of left foot with fat layer exposed; L97.512 Non-pressure chronic ulcer of other part of right foot with fat layer exposed; E10.65 Type 1 diabetes mellitus with hyperglycemia; B95.62 Methicillin resistant Staphylococcus aureus infection as the cause of diseases classified elsewhere; F17.210 Nicotine dependence, cigarettes, uncomplicated; E10.51 Type 1 diabetes mellitus with diabetic peripheral angiopathy without gangrene; E10.42 Type 1 diabetes mellitus with diabetic polyneuropathy; Z89.422 Acquired absence of other left toe(s); Z88.1 Allergy status to other antibiotic agents; Z88.5 Allergy status to narcotic agent; Z88.2 Allergy status to sulfonamides; Z86.711 Personal history of pulmonary embolism; Z86.718 Personal history of other venous thrombosis and embolism; Z79.2 Long term (current) use of antibiotics; Z79.01 Long term (current) use of anticoagulants; Z79.891 Long term (current) use of opiate analgesic; Z79.899 Other long term (current) drug therapy
CPT/HCPCS: 36415; 73620; 80048; 80053; 80069; 80202; 82947; 83036; 85025; 87070; 87071; 87075; 87077; 87081; 87147; 87186; 87205; 93005; 93010; 94760; 96361; 96365; 96375; 99285-25; J1815; J2001; J2185; J2250; J3010; J3370; J3490; J7030; J7050; J7120

== ENCOUNTER 2018-01-13 11:01 | Day surgery (SDC) | payer OTHER ==
[~2018-01-13 11:01] MED LIST changes: +BETA.05TCA TOP; +FURO40 PO; +Mirtazapine45 M1 PO; +ONDA4ODT MM; +POTCHL10ER PO; +TRAM50 PO; +ZYRTEC10 M1 PO
== END 2018-01-13 22:43 | disposition home or self-care (01) ==
LOC: ATC 11:01
DX: E11.621 Type 2 diabetes mellitus with foot ulcer (principal); L97.512 Non-pressure chronic ulcer of other part of right foot with fat layer exposed; L97.521 Non-pressure chronic ulcer of other part of left foot limited to breakdown of skin; I10 Essential (primary) hypertension; F17.210 Nicotine dependence, cigarettes, uncomplicated; Z79.4 Long term (current) use of insulin; Z79.899 Other long term (current) drug therapy; Z79.51 Long term (current) use of inhaled steroids; Z88.5 Allergy status to narcotic agent; Z88.2 Allergy status to sulfonamides; Z91.048 Other nonmedicinal substance allergy status
CPT/HCPCS: 99214

== ENCOUNTER 2018-01-25 08:20 | Day surgery (SDC) | payer OTHER | END 2018-01-25 10:55 | disposition home or self-care (01) | LOC: ATC 08:20 | DX: E11.621 Type 2 diabetes mellitus with foot ulcer (principal); L97.512 Non-pressure chronic ulcer of other part of right foot with fat layer exposed; Z79.4 Long term (current) use of insulin; I10 Essential (primary) hypertension; J45.909 Unspecified asthma, uncomplicated; F17.210 Nicotine dependence, cigarettes, uncomplicated | CPT/HCPCS: 99211 ==

== ENCOUNTER 2018-02-01 09:55 | Day surgery (SDC) | payer OTHER | END 2018-02-01 10:30 | disposition home or self-care (01) | LOC: ATC 09:55 | DX: E11.621 Type 2 diabetes mellitus with foot ulcer (principal); L97.512 Non-pressure chronic ulcer of other part of right foot with fat layer exposed; L97.521 Non-pressure chronic ulcer of other part of left foot limited to breakdown of skin | CPT/HCPCS: 99211 ==

== ENCOUNTER 2018-02-07 16:24 | Inpatient (IN) | payer OTHER ==
[~2018-02-07] VITALS: Ht 190.5 cm; Wt 81.8 kg
[2018-02-07 17:23] LABS: BASOPHILS ABSOLUTE AUTO 0.04 K/mm3 (0.00-0.23); BASOPHILS PERCENT AUTO 0 % (0-2); EOSINOPHILS PERCENT AUTO 0 % (0-6); Hematocrit 50.3 % (37.0-53.0); Hemoglobin 15.1 g/dL (13.5-17.5); IMMATURE GRAN ABSOLUTE AUTO 0.07 K/mm3 (0.00-0.10); IMMATURE GRAN PERCENT AUTO 1 % (0-1); LYMPHOCYTES ABSOLUTE AUTO 0.45 K/mm3 (0.84-5.20); LYMPHOCYTES PERCENT AUTO 4 % (21-46); MONOCYTES ABSOLUTE AUTO 0.41 K/mm3 (0.16-1.47); MONOCYTES PERCENT AUTO 3 % (4-13); Mean Corpuscular HGB 29.3 pg (26.0-34.0); Mean Corpuscular Volume 98 fL (80-100); NEUTROPHILS ABSOLUTE AUTO 11.49 K/mm3 (1.96-9.15); NEUTROPHILS PERCENT AUTO 92 % (41-73); RDW Coefficient Variation 12.6 % (11.7-14.2); RDW Standard Deviation 45.3 fL (35.1-46.3); Red Blood Cell Count 5.15 M/mm3 (4.30-5.90); White Blood Cell Count 12.46 K/mm3 (4.00-11.30)
[2018-02-07 17:26] LABS: Mean Platelet Volume 11.5 fL (9.1-12.4); Platelet Count 192 K/mm3 (150-400)
[2018-02-07 17:34] LABS: Albumin, Blood 3.5 g/dL (3.4-5.0); Albumin/Globulin Ratio 0.6 (0.8-1.8); Bilirubin, Total 0.6 mg/dL (0.1-1.0); Calcium, Blood 9.3 mg/dL (8.5-10.1); Creatinine, Blood 1.47 mg/dL (0.60-1.20); Globulin, Blood 5.8 g/dL (2.2-4.0); Potassium, Blood 5.8 mmol/L (3.5-5.5); Total Protein, Blood 9.3 g/dL (6.4-8.2)
[2018-02-07 17:40] LABS: Calcium, Ionized (POC) 1.06 mmol/L (1.10-1.46); Chloride (POC) 87 mmol/L (98-108); Creatinine (POC) 1.6 mg/dL (0.8-1.3); Glucose (ISTAT POC) >700 mg/dL (70-99); Hemoglobin (POC) 16.7 g/dL (13.5-17.5); Potassium (POC) 5.5 mmol/L (3.5-5.5); Sodium (POC) 121 mmol/L (135-148); Total CO2 (POC) 9 mmol/L (21-32)
[2018-02-07 18:44] LABS: Magnesium, Blood 2.7 mg/dL (1.6-2.4); Troponin I <0.015 ng/mL (0.000-0.040)
[2018-02-07 19:27] LABS: U Amphetamine Screen Not Detected; U Barbituate Screen Not Detected; U Benzodiazapine Screen Not Detected; U Buprenorphine Screen Not Detected; U Cannabinoids Screen Not Detected; U Cocaine Screen Not Detected; U Methadone Screen Not Detected; U Methamphetamine Screen Not Detected; U Opiates Screen Not Detected; U Oxycodone Screen Not Detected; U Phencyclidine Screen Not Detected; U Propoxyphene Screen Not Detected
[2018-02-07 21:45] LABS: Bun/Creatinine Ratio 37.9 (12.0-20.0); Calcium, Blood 8.5 mg/dL (8.5-10.1); Creatinine, Blood 1.32 mg/dL (0.60-1.20); Potassium, Blood 4.8 mmol/L (3.5-5.5)
[2018-02-07 23:18] LABS: Glucose, Blood 792 mg/dL (70-99)
[2018-02-08 00:27] LABS: Glucose, Blood 607 mg/dL (70-99)
[2018-02-08 01:11] LABS: Anion Gap 18 mmol/L (6-16); Blood Urea Nitrogen 46 mg/dL (8-24); CO2, Blood 18 mmol/L (21-32); Calcium, Blood 8.9 mg/dL (8.5-10.1); Chloride, Blood 100 mmol/L (98-108); Creatinine, Blood 1.15 mg/dL (0.60-1.20); Glomerular Filtration Rate >60 (60-); Glucose, Blood 483 mg/dL (70-99); Potassium, Blood 4.1 mmol/L (3.5-5.5); Sodium, Blood 136 mmol/L (136-145)
[2018-02-08 03:59] LABS: BASOPHILS ABSOLUTE AUTO 0.01 K/mm3 (0.00-0.23); BASOPHILS PERCENT AUTO 0 % (0-2); EOSINOPHILS PERCENT AUTO 0 % (0-6); Hematocrit 38.4 % (37.0-53.0); IMMATURE GRAN ABSOLUTE AUTO 0.04 K/mm3 (0.00-0.10); IMMATURE GRAN PERCENT AUTO 0 % (0-1); LYMPHOCYTES ABSOLUTE AUTO 0.86 K/mm3 (0.84-5.20); LYMPHOCYTES PERCENT AUTO 9 % (21-46); MONOCYTES ABSOLUTE AUTO 0.84 K/mm3 (0.16-1.47); MONOCYTES PERCENT AUTO 8 % (4-13); Mean Corpuscular HGB 29.2 pg (26.0-34.0); Mean Corpuscular HGB Conc 33.9 g/dL (31.5-36.5); Mean Corpuscular Volume 86 fL (80-100); NEUTROPHILS ABSOLUTE AUTO 8.28 K/mm3 (1.96-9.15); NEUTROPHILS PERCENT AUTO 83 % (41-73); Platelet Count 229 K/mm3 (150-400); RDW Coefficient Variation 11.9 % (11.7-14.2); Red Blood Cell Count 4.45 M/mm3 (4.30-5.90); White Blood Cell Count 10.03 K/mm3 (4.00-11.30)
[2018-02-08 04:26] LABS: Anion Gap 12 mmol/L (6-16); Blood Urea Nitrogen 47 mg/dL (8-24); Bun/Creatinine Ratio 42.7 (12.0-20.0); CO2, Blood 22 mmol/L (21-32); Calcium, Blood 8.6 mg/dL (8.5-10.1); Chloride, Blood 104 mmol/L (98-108); Glomerular Filtration Rate >60 (60-); Glucose, Blood 403 mg/dL (70-99); Magnesium, Blood 2.2 mg/dL (1.6-2.4); Potassium, Blood 4.2 mmol/L (3.5-5.5); Sodium, Blood 138 mmol/L (136-145)
[2018-02-08 07:13] LABS: Anion Gap 7 mmol/L (6-16); Blood Urea Nitrogen 49 mg/dL (8-24); Bun/Creatinine Ratio 48.5 (12.0-20.0); CO2, Blood 24 mmol/L (21-32); Calcium, Blood 8.9 mg/dL (8.5-10.1); Chloride, Blood 108 mmol/L (98-108); Creatinine, Blood 1.01 mg/dL (0.60-1.20); Glomerular Filtration Rate >60 (60-); Glucose, Blood 255 mg/dL (70-99); Potassium, Blood 4.1 mmol/L (3.5-5.5); Sodium, Blood 139 mmol/L (136-145)
== END 2018-02-09 12:35 | disposition home or self-care (01) | DRG 638 ==
LOC: ER 16:24 → ICUE 18:22 → ICUW 18:22 → ICUE 19:49 → MEDS 02-08 20:40 → ENPENDDIS 02-09 08:30 → MEDS 02-09 12:35
PROVIDERS: Emergency Medicine; Hospitalist; Internal Medicine; Nurse Practitioner Acute Care
PROC: 3E0234Z Introduction of Serum, Toxoid and Vaccine into Muscle, Percutaneous Approach (ICD-10-PCS; principal; 2018-02-07)
DX: E10.10 Type 1 diabetes mellitus with ketoacidosis without coma (principal); E87.1 Hypo-osmolality and hyponatremia; E10.40 Type 1 diabetes mellitus with diabetic neuropathy, unspecified; E10.621 Type 1 diabetes mellitus with foot ulcer; L97.509 Non-pressure chronic ulcer of other part of unspecified foot with unspecified severity; K21.9 Gastro-esophageal reflux disease without esophagitis; I10 Essential (primary) hypertension; K22.2 Esophageal obstruction; E78.5 Hyperlipidemia, unspecified; R19.7 Diarrhea, unspecified; F17.200 Nicotine dependence, unspecified, uncomplicated; Z86.14 Personal history of Methicillin resistant Staphylococcus aureus infection; Z86.718 Personal history of other venous thrombosis and embolism; Z88.5 Allergy status to narcotic agent; Z88.8 Allergy status to other drugs, medicaments and biological substances; Z79.4 Long term (current) use of insulin; Z79.899 Other long term (current) drug therapy; Z23 Encounter for immunization
CPT/HCPCS: 36415; 36416; 71045; 80047; 80048; 80053; 82947; 83735; 84484; 85014; 85025; 87086; 90686; 93005; 93010; 96361; 96374; 99285-25; C9113; J0610; J1815; J2405; J2550; J7030; J7050

== ENCOUNTER 2018-02-15 00:33 | Day surgery (SDC) | payer OTHER | END 2018-02-15 17:13 | disposition home or self-care (01) | LOC: ATC 00:33 | DX: E11.621 Type 2 diabetes mellitus with foot ulcer (principal); L97.512 Non-pressure chronic ulcer of other part of right foot with fat layer exposed; L97.521 Non-pressure chronic ulcer of other part of left foot limited to breakdown of skin | CPT/HCPCS: 99212 ==

== ENCOUNTER → 2018-03-17 | Outpatient (CLI) | payer OTHER | END | disposition home or self-care (01) | LOC: LAB 11:30 → LAB SHORT 11:30 | DX: L03.112 Cellulitis of left axilla (principal) | CPT/HCPCS: 87070; 87077; 87147; 87186; 87205 ==

== ENCOUNTER 2018-05-08 17:44 | Inpatient (IN) | payer OTHER ==
[~2018-05-08] VITALS: Ht 190.5 cm; Wt 89.7 kg
[~2018-05-08 17:44] MED LIST changes: +Humalog100 UNIT/3 SC; +Lantus100 UNIT/1 SC; +Micro-K10 MEQ PO; +ONDA4 PO; +PROM25 PO
[2018-05-08 18:19] LABS: BASOPHILS ABSOLUTE AUTO 0.03 K/mm3 (0.00-0.23); BASOPHILS PERCENT AUTO 0 % (0-2); EOSINOPHILS ABSOLUTE AUTO 0.11 K/mm3 (0.00-0.68); EOSINOPHILS PERCENT AUTO 2 % (0-6); Hematocrit 23.2 % (37.0-53.0); Hemoglobin 7.3 g/dL (13.5-17.5); IMMATURE GRAN ABSOLUTE AUTO 0.02 K/mm3 (0.00-0.10); IMMATURE GRAN PERCENT AUTO 0 % (0-1); LYMPHOCYTES ABSOLUTE AUTO 1.04 K/mm3 (0.84-5.20); LYMPHOCYTES PERCENT AUTO 15 % (21-46); MONOCYTES ABSOLUTE AUTO 0.78 K/mm3 (0.16-1.47); MONOCYTES PERCENT AUTO 12 % (4-13); Mean Corpuscular HGB Conc 31.5 g/dL (31.5-36.5); Mean Platelet Volume 8.9 fL (9.1-12.4); NEUTROPHILS ABSOLUTE AUTO 4.82 K/mm3 (1.96-9.15); NEUTROPHILS PERCENT AUTO 71 % (41-73); Platelet Count 459 K/mm3 (150-400); Red Blood Cell Count 2.43 M/mm3 (4.30-5.90)
[2018-05-08 18:21] LABS: Mean Corpuscular Volume 96 fL (80-100)
[2018-05-08 18:38] LABS: Troponin I <0.015 ng/mL (0.000-0.040)
[2018-05-08 18:50] LABS: Alanine Aminotransfer (ALT/SGP 30 U/L (12-78); Albumin, Blood 2.3 g/dL (3.4-5.0); Albumin/Globulin Ratio 0.5 (0.8-1.8); Alk Phos 138 U/L (50-136); Anion Gap 8 mmol/L (6-16); Aspartate Aminotrans (AST/SGOT 19 U/L (12-37); Bilirubin, Total 0.2 mg/dL (0.1-1.0); Blood Urea Nitrogen 15 mg/dL (8-24); Bun/Creatinine Ratio 16.6 (12.0-20.0); CO2, Blood 28 mmol/L (21-32); Chloride, Blood 107 mmol/L (98-108); Globulin, Blood 4.4 g/dL (2.2-4.0); Glomerular Filtration Rate >60 (60-); Glucose, Blood 33 mg/dL (70-99); Potassium, Blood 3.3 mmol/L (3.5-5.5); Sodium, Blood 143 mmol/L (136-145); Total Protein, Blood 6.7 g/dL (6.4-8.2)
[2018-05-08 20:34] LABS: Percent Saturation 4.4 % (20.0-50.0)
[2018-05-08] MEDS ORDERED: FURO40 PO (21:52)
[2018-05-08] MEDS ORDERED: K-Tab10 MEQ PO (21:58)
--- NOTE | 2018-05-08 22:00 | NUR ---
PT VOMITING PT IN ROOM VOMITING. PT STILL REQUESTING FOOD AT THIS TIME. WAS MEDICATED FOR FOR N/V TO CONTROL SYMPTOMS. PT EDUCATED ABOUT EATING WHILE VOMITING AND RISK FOR ASPIRATION. PT INSISTS ON EATING. PT GIVEN A PUDDING AND AN ENSURE TO TRY. PT ABLE TO EAT PUDDING W/O VOMITING. PT DRANK HALF OF ENSURE. WILL CONT TO MONITOR.
--- NOTE | 2018-05-09 04:26 | NUR ---
VOMITING PT HAS BEEN SLEEPING AND APPEARED TO BE COMFORTABLE. AWAKE NOW AND REQUESTING SPRITE TO DRINK. PROVIDED. PT ABLE TO DRINK SEVERAL SIPS BEFORE STARTING TO VOMIT. PT MEDICATED PER EMAR FOR N/V. PT STILL REQUESTING FOOD. EDUCATED PT ON NEED TO CONTROL N/V BEFORE ATTEMPTING ANY SOLID FOOD AT THIS TIME, D/T EPIDOES OF VOMITING WITH SPRITE. PT LIES DOWN TO SLEEP AGAIN. CBG REMAINS AT 62 WITH D10% INF IN PIV.
[2018-05-09 04:48] LABS: Anion Gap 6 mmol/L (6-16); Blood Urea Nitrogen 13 mg/dL (8-24); CO2, Blood 27 mmol/L (21-32); Calcium, Blood 7.3 mg/dL (8.5-10.1); Chloride, Blood 109 mmol/L (98-108); Creatinine, Blood 0.77 mg/dL (0.60-1.20); Glomerular Filtration Rate >60 (60-); Glucose, Blood 59 mg/dL (70-99); Potassium, Blood 3.8 mmol/L (3.5-5.5); Sodium, Blood 142 mmol/L (136-145)
--- NOTE | 2018-05-09 05:41 | NUR ---
SHIFT SUMMARY PT SITTING UP IN BED DRINKING CHICKEN BROTH. PT HAS BEEN HYPOGLYCEMIC T/O SHIFT. D10% INFUSING IN PIV. CBG CHECKED Q1 HR. 25ML OF D50% GIVEN FOR CBG OF 58. PT ATTEMPTING TO EAT PUDDING AND BROTH AT THIS TIME, AFTER BEING MEDICATED FOR N/V. PT ABLE TO TOLERATE SMALL SIPS AND BOTES W/O N/V. PT REMAINS IRRITABLE WITH STAFF AT THIS TIME, ABOUT CURRENT ILLNESS AND INABILITY TO CONTROL BLOOD SUGAR LEVELS AND NAUSEA. PT EDUCATED ABOUT CURENT ILLNESS MEDICATIONS AND NEED FOR RE-EVALUATION BY PROVIDER THIS AM. DENIES PAIN AT THIS TIME. REPORTS "I FEEL LIKE CRAP". CALL LIGHT IS IN REACH. WILL CONT TO MONITOR.
[2018-05-09 14:06] LABS: Hematocrit 23.3 % (37.0-53.0); Hemoglobin 7.3 g/dL (13.5-17.5)
--- NOTE | 2018-05-09 17:50 | NUR ---
END OF SHIFT; PT REMAINS ON Q1 HOUR BLOOD SUGARS. LAST BLOOD SUGAR 52 AND RECEIVED 1/2 AMP D50 FOR SAME. PT IS NAUSEATED AND IS VOMITTING IN TRASH CAN NEXT TO THE BED. ASKING PATIENT TO REFRAIN FROM EATING UNTIL ANTI NAUSEA MEDS HAVE A TIME TO WORK ARE UNSUCCESSFUL. PT BECOMES ANGRY AND INSISTANT ON EATING. NEW MED ORDER FOR REGLAN RECEIVED THIS AFTERNOON FOR NAUSEA. POWERGLIDE PLACED BY SANIA RN ON UPPER RIGHT DELT THIS AFTERNOON AFTERNOON IV INFILTRATED. PT STILL RECEIVING D10 FOR LOW BLOOD SUGARS. HE IS TO BE NOTHING BUT CHIPS AND SIPS AFTER NINE TONIGHT AND THEN NPO AFTER 0500 IN THE AM PER . PT VERBALIZED UNDERSTANDING. WILL CONTINUE TO MONITOR THIS PATIENT UNTIL REPORT AND HAND OFF TO NOC SHIFT RN.
--- NOTE | 2018-05-09 23:55 | NUR ---
PATIENT REFUSED 0000 CBG PATIENT CURED ABOUT BEING WOKEN AND REFUSED CBG.
--- NOTE | 2018-05-10 00:05 | NUR ---
ASSUMED CARE NOTE - PCU NOC SHIFT PATIENT ALERT AND ORIENTED X4. PATIENT VERY AGITATED TO ANGRY DURING ASSESSMENTS, GETTING CBG'S AND VS. PATIENT HAS D10 GTT AND IS Q1 CBG. PATIENT CURES WHEN AWOKE AND REFUSES CARE AT TIMES - PATIENT EDUCATED REGARDING CARE AND REASONS BEHIND NEEDING TO DO Q1 CBG'S DUE TO THE FACT THAT HE WAS FOUND UNCONSCIOUS WITH A CBG IN THE 30'S AND THAT HE COULD HAVE IF HE DID NOT COME TO HOSPITAL BUT THAT HE COULD MAKE HIS OWN CHOICES. APPROX 2300 SPOKE WITH PROVIDER PROVIDER SINPU NOTIFIED OF PATIENTS LAST 3 BLOOD SUGARS FROM 100-110 - NO NEW ORDERS GIVEN AT THIS TIME. PATIENT HAS BEEN KEPT NPO AWAITING PROCEDURE BY MD FIELD IN AM. CALL LIGHT W/I REACH. WILL CONTINUE TO MONITOR.
--- NOTE | 2018-05-10 02:26 | NUR ---
PATIENT REFUSED CBG WHEN SLEEPING PATIENT CURRENTLY SLEEPING AND 0200 CBG MISSED DUE TO REFUSAL. WILL CONTINUE TO MONITOR.
[2018-05-10 04:14] LABS: Hematocrit 22.2 % (37.0-53.0); Hemoglobin 6.9 g/dL (13.5-17.5)
[2018-05-10 04:32] LABS: Anion Gap 5 mmol/L (6-16); Blood Urea Nitrogen 6 mg/dL (8-24); Bun/Creatinine Ratio 6.9 (12.0-20.0); CO2, Blood 28 mmol/L (21-32); Calcium, Blood 7.3 mg/dL (8.5-10.1); Chloride, Blood 108 mmol/L (98-108); Creatinine, Blood 0.86 mg/dL (0.60-1.20); Glomerular Filtration Rate >60 (60-); Glucose, Blood 133 mg/dL (70-99); Magnesium, Blood 2.1 mg/dL (1.6-2.4); Potassium, Blood 3.6 mmol/L (3.5-5.5); Sodium, Blood 141 mmol/L (136-145)
--- NOTE | 2018-05-10 05:27 | NUR ---
PCU NOC SHIFT SUMMARY PATIENT SLEPT ON AND OFF T/O THE NOC. RESP E/U ON ROOM AIR. PATIENT DENIED ANY PAIN T/O SHIFT BUT HAD CONTINUOUS NAUSEA RELIEVED WITH MEDICATION PER EMAR. PATIENT HAD D10 GTT CONTINUOUS T/O NOC W/ Q1 CBG'S. PATIENT ALERT AND ORIENTED X4. AT APPROX 0430 NOTIFIED PROVIDER SAIGAL THAT PATIENTS HGB WAS DOWN TO 6.9 AND NO ORDERS GIVEN AT THIS TIME. CALL LIGHT W/I REACH; WILL CONTINUE TO MONITOR AND REPORT OFF TO DAYSHIFT RN. VSS T/O SHIFT.
--- NOTE | 2018-05-10 07:04 | NUR ---
BROUGHT TO [facility] FROM PCU AFTER RECIEVING REPORT PAT. ACE VSS ADMISSION TO [facility] STARTED
--- NOTE | 2018-05-10 07:15 | NUR ---
REPORT FOR THIS PATIENT FROM KENTRELL MERIDA. PT IS OFF FLOOR TO SURGERY AT TIME OF SHIFT CHANGE.
--- NOTE | 2018-05-10 14:13 | NUR ---
THIS RN SPEAKS WITH TAKE CBG IN 4 HOURS AND IF STILL WNL CAN CHANGE CGG TO AC AND HS. ALSO DC D10. BUT CAN START AGAIN IF CBG DROPS INTO BELOW NORMAL LIMITS AGAIN.
--- NOTE | 2018-05-10 17:30 | NUR ---
END OF SHIFT; PT HAD EGD STUDY DONE TODAY. PER PT HAS A CIRCUMFLEX ULCER OF HIS ESOPHAGUS AND A SMALL TEAR THERE ALSO. PT TO REMAIN ON FULL LIQUID DIET. PER ONLY HE IS TO MANAGE PATIENTS DIET AND TO REFER ALL QUESTIONS ABOUT SAME TO HIM. PT IS NOW AC AND HS BLOOD SUGARS. HE WAS VERY ANGRY EARLIER IN SHIFT INSISTING ON EATING A SANDWICH DID NOT WANT LIQUIDS. CHRIS RN CAME TO ROOM AND WAS ABLE TO CALM PT AND EDUCATE HIM ON HOW SERIOUS HIS CONDITION WAS. REINFORCING TEACHING BY THIS RN AND ALEX BACKEND PYTHON DEVELOPER OF SAME. AT THIS TIME PT IS RESTING COMFORTABLY IN BED AND LIGHTS ARE LOW. VITAL SIGNS ARE STABLE CHARTED. WILL CONTINUE TO MONITOR THIS PATIENT UNTIL REPORT AND HAND OFF TO NOC SHIFT RN.
--- NOTE | 2018-05-10 21:57 | NUR ---
ASSUMED CARE - PCU NOC SHIFT PATIENT ALERT AND ORIENTED X4. RESP E/U ON ROOM AIR AND LUNG SOUNDS CLEAR TO DIM. PATIENT SITTING UP ON SIDE OF BED EATING FULL LIQUID DIET AT THIS TIME. PATIENT DENIES ANY PAIN OR DISCOMFORT AT THIS TIME. PATIENT EDUCATED ON POST OPERATIVE DIET FROM SCOPE AND MD CABRERA ORDERS WHICH PATIENT VERBALIZED. VSS; CALL LIGHT W/I REACH. WILL CONTINUE TO MONITOR.
[2018-05-11 04:51] LABS: Hematocrit 23.3 % (37.0-53.0); Hemoglobin 7.3 g/dL (13.5-17.5)
[2018-05-11 04:55] LABS: Anion Gap 4 mmol/L (6-16); Blood Urea Nitrogen 5 mg/dL (8-24); Bun/Creatinine Ratio 6.2 (12.0-20.0); CO2, Blood 27 mmol/L (21-32); Calcium, Blood 7.6 mg/dL (8.5-10.1); Chloride, Blood 107 mmol/L (98-108); Creatinine, Blood 0.81 mg/dL (0.60-1.20); Glomerular Filtration Rate >60 (60-); Glucose, Blood 238 mg/dL (70-99); Potassium, Blood 5.2 mmol/L (3.5-5.5); Sodium, Blood 138 mmol/L (136-145)
--- NOTE | 2018-05-11 05:34 | NUR ---
PCU NOC SHIFT SUMMARY PATIENT ALERT AND ORIENTED X4 T/O SHIFT. PATIENT REMAINED IN NSR PER SUPERVISOR LEAD REFINERY. VSS. PATIENT RECIEVED IRON INFUSION PER EMAR AND 1 UNIT PRBC PER ORDER. PATIENT H&H MILDLY IMPROVED. PATIENT DENIED ANY PAIN THROUGHOUT SHIFT AND PATIENT ATE IN FROM OF MD MCKEON TOLD HIM ABOUT RER DECLINING BREATG. PATIENT TO GET ANDGIOGRAM THIS AM AND HERPARIN GTT STOPPED AT 0500 - PHARMACY NOFITIED. NO ACUTE CHANGES. WILL CONTINUE TO MONIOR AND GIVE REPORT DAUSHIFT FROM [facility].
--- NOTE | 2018-05-11 07:56 | NUR ---
ASSUMPTION OF CARE PATIENT RESTING QUIETLY IN BED, WATCHING TV. NO COMPLAINTS. VSS. WILL CONTINUE TO MONITOR.
--- NOTE | 2018-05-11 12:17 | NUR ---
DR. ROTHMAN IN TO SEE PATIENT. SPOKE TO PHYSICAN AND INFORMED OF BLOOD SUGARS BEING 194 TO 291 TODAY. STATED SHE WILL LOOK AT HOME INSULIN DOSES.
--- NOTE | 2018-05-11 16:48 | NUR ---
DR. FIELD IN ROOM TO SEE PATIENT.
[2018-05-11] MEDS ORDERED: FERROUS SU220 MG/51 PO (17:59)
--- NOTE | 2018-05-11 18:21 | NUR ---
PATIENT GIVEN DISCHARGE PAPERWORK. PATIENT STATED THAT HE UNDERSTOOD DIRECTIONS AND SIGNED PAPERWORK. I CALLED FOR PATIENT. PATIENT ESCORTED TO HOSPITAL EXIT.
== END 2018-05-11 18:20 | disposition home or self-care (01) | DRG 380 ==
LOC: ER 17:44 → PCU 17:45
PROVIDERS: Emergency Medicine; Internal Medicine; Internal Medicine Gastroenterology; ADMIT Family Medicine
PROC: 0D738ZZ Dilation of Lower Esophagus, Via Natural or Artificial Opening Endoscopic (ICD-10-PCS; 2018-05-10)
PROC: 30233N1 Transfusion of Nonautologous Red Blood Cells into Peripheral Vein, Percutaneous Approach (ICD-10-PCS; 2018-05-10)
PROC: 0D728ZZ Dilation of Middle Esophagus, Via Natural or Artificial Opening Endoscopic (ICD-10-PCS; principal; 2018-05-10 07:30)
PROC: 0DC18ZZ Extirpation of Matter from Upper Esophagus, Via Natural or Artificial Opening Endoscopic (ICD-10-PCS; 2018-05-10 07:30)
DX: K22.11 Ulcer of esophagus with bleeding (principal); G93.41 Metabolic encephalopathy; D62 Acute posthemorrhagic anemia; S11.22XA Laceration with foreign body of pharynx and cervical esophagus, initial encounter; E11.649 Type 2 diabetes mellitus with hypoglycemia without coma; K29.81 Duodenitis with bleeding; Z86.711 Personal history of pulmonary embolism; R45.1 Restlessness and agitation; Z86.718 Personal history of other venous thrombosis and embolism; K21.9 Gastro-esophageal reflux disease without esophagitis; F17.200 Nicotine dependence, unspecified, uncomplicated; I48.0 Paroxysmal atrial fibrillation; E87.6 Hypokalemia; D50.9 Iron deficiency anemia, unspecified; Z89.422 Acquired absence of other left toe(s); Z89.412 Acquired absence of left great toe; E78.5 Hyperlipidemia, unspecified; K22.2 Esophageal obstruction; Z59.0 Homelessness; Z79.4 Long term (current) use of insulin; E11.621 Type 2 diabetes mellitus with foot ulcer; L97.509 Non-pressure chronic ulcer of other part of unspecified foot with unspecified severity; Y83.8 Other surgical procedures as the cause of abnormal reaction of the patient, or of later complication, without mention of misadventure at the time of the procedure; Y73.3 Surgical instruments, materials and gastroenterology and urology devices (including sutures) associated with adverse incidents; Y92.234 Operating room of hospital as the place of occurrence of the external cause
CPT/HCPCS: 36415; 36430; 80048; 80053; 82607; 82728; 82746; 82947; 83540; 83550; 83690; 83735; 84484; 85014; 85018; 85025; 86850; 86900; 86901; 86920; 93005; 93010; 96361; 96365; 96375; 96376; 99285-25; C1726; C9113; J2405; J2765; J2916; J7030; J7050; J7120; P9016

== ENCOUNTER 2018-05-19 06:29 | Emergency (ER) | payer OTHER ==
[~2018-05-19] VITALS: Ht 190.5 cm; Wt 70.3 kg
[~2018-05-19 06:29] MED LIST changes: +FERROUS SU220 MG/51 PO; +K-Tab10 MEQ PO
[2018-05-19 07:25] LABS: BASOPHILS ABSOLUTE AUTO 0.04 K/mm3 (0.00-0.23); BASOPHILS PERCENT AUTO 0 % (0-2); EOSINOPHILS ABSOLUTE AUTO 0.02 K/mm3 (0.00-0.68); EOSINOPHILS PERCENT AUTO 0 % (0-6); Hematocrit 35.4 % (37.0-53.0); Hemoglobin 11.1 g/dL (13.5-17.5); IMMATURE GRAN ABSOLUTE AUTO 0.06 K/mm3 (0.00-0.10); IMMATURE GRAN PERCENT AUTO 0 % (0-1); LYMPHOCYTES ABSOLUTE AUTO 0.85 K/mm3 (0.84-5.20); LYMPHOCYTES PERCENT AUTO 6 % (21-46); MONOCYTES ABSOLUTE AUTO 0.68 K/mm3 (0.16-1.47); MONOCYTES PERCENT AUTO 5 % (4-13); Mean Corpuscular HGB 29.1 pg (26.0-34.0); Mean Corpuscular HGB Conc 31.4 g/dL (31.5-36.5); Mean Corpuscular Volume 93 fL (80-100); Mean Platelet Volume 9.1 fL (9.1-12.4); NEUTROPHILS ABSOLUTE AUTO 13.11 K/mm3 (1.96-9.15); NEUTROPHILS PERCENT AUTO 89 % (41-73); Platelet Count 353 K/mm3 (150-400); RDW Standard Deviation 48.3 fL (35.1-46.3); Red Blood Cell Count 3.81 M/mm3 (4.30-5.90); White Blood Cell Count 14.76 K/mm3 (4.00-11.30)
[2018-05-19 07:48] LABS: Alanine Aminotransfer (ALT/SGP 15 U/L (12-78); Albumin, Blood 2.9 g/dL (3.4-5.0); Albumin/Globulin Ratio 0.6 (0.8-1.8); Alk Phos 131 U/L (50-136); Anion Gap 9 mmol/L (6-16); Aspartate Aminotrans (AST/SGOT 11 U/L (12-37); Bilirubin, Total 0.4 mg/dL (0.1-1.0); Blood Urea Nitrogen 23 mg/dL (8-24); Bun/Creatinine Ratio 23.4 (12.0-20.0); CO2, Blood 28 mmol/L (21-32); Calcium, Blood 9.2 mg/dL (8.5-10.1); Chloride, Blood 107 mmol/L (98-108); Creatinine, Blood 0.99 mg/dL (0.60-1.20); Globulin, Blood 5.1 g/dL (2.2-4.0); Glomerular Filtration Rate >60 (60-); Glucose, Blood 54 mg/dL (70-99); Potassium, Blood 3.8 mmol/L (3.5-5.5); Sodium, Blood 144 mmol/L (136-145)
== END 2018-05-19 10:09 | disposition home or self-care (01) ==
LOC: ER 06:29
PROVIDERS: Emergency Medicine
DX: R41.82 Altered mental status, unspecified (principal); E10.649 Type 1 diabetes mellitus with hypoglycemia without coma; Z88.1 Allergy status to other antibiotic agents; Z88.2 Allergy status to sulfonamides; Z88.8 Allergy status to other drugs, medicaments and biological substances; Z88.5 Allergy status to narcotic agent; Z79.899 Other long term (current) drug therapy; Z79.4 Long term (current) use of insulin; F17.200 Nicotine dependence, unspecified, uncomplicated
CPT/HCPCS: 36415; 80053; 82947; 83690; 85025; 96361; 96374; 96375; 96376; 99285-25; J2405; J7030

== ENCOUNTER 2018-05-30 09:41 | Day surgery (SDC) | payer OTHER ==
[~2018-05-30] VITALS: Ht 190.5 cm; Wt 73.5 kg
--- NOTE | 2018-05-30 11:45 | NUR ---
05/30/18 1145 Sary Zayas 2 ATTEMPTS RH RW 1 SUCCESSFUL ATTEMPT
== END 2018-05-30 14:23 | disposition home or self-care (01) ==
LOC: ORSCSDS 09:41
PROVIDERS: Internal Medicine Gastroenterology
PROC: 0DJ08ZZ Inspection of Upper Intestinal Tract, Via Natural or Artificial Opening Endoscopic (ICD-10-PCS; principal; 2018-05-30 11:30)
DX: R13.10 Dysphagia, unspecified (principal); K22.2 Esophageal obstruction; Z87.11 Personal history of peptic ulcer disease; E78.5 Hyperlipidemia, unspecified; J44.9 Chronic obstructive pulmonary disease, unspecified; E11.621 Type 2 diabetes mellitus with foot ulcer; F17.210 Nicotine dependence, cigarettes, uncomplicated; Z79.01 Long term (current) use of anticoagulants; Z79.4 Long term (current) use of insulin; Z79.899 Other long term (current) drug therapy
CPT/HCPCS: 82947; C1726; J2405; J7120

== ENCOUNTER 2018-06-10 17:55 | Emergency (ER) | payer OTHER ==
[~2018-06-10] VITALS: Ht 177.8 cm; Wt 60.0 kg
== END 2018-06-10 22:17 ==
LOC: ER 17:55 → EDBD 17:55 → ER 22:17
DX: I46.9 Cardiac arrest, cause unspecified (principal); E11.9 Type 2 diabetes mellitus without complications
CPT/HCPCS: 92960; 96374; 96375; 99285-25; J0282; J1265; J1815; J7030